=== PATIENT | male | born 1950 | race Caucasian/White ===

== ENCOUNTER 2023-07-08 16:34 | Emergency (ER) | payer OTHER, SELFPAY ==
[2023-07-08 16:37] VITALS: BP 143/79
[2023-07-08 17:09] LABS: % Basophils 0.3 % (0-2); % Eosinophils 6.1 % (0-6); % Immature Granulocytes 0.3 % (0-0.5); % Lymphocytes 29.8 % (20.5-51.1); % Monocytes 8.4 % (1.7-9.3); % Neutrophils 55.1 % (42.2-75.2); Absolute Eosinophils 0.4 10^3/uL (0-0.7); Absolute Lymphocytes 1.9 10^3/uL (1.2-3.4); Absolute Monocytes 0.5 10^3/uL (0.1-0.6); Absolute Neutrophils 3.5 10^3/uL (1.4-6.5); Hematocrit 44.5 % (39.0-52.0); Hemoglobin 15.9 g/dL (13.0-18.0); Mean Corp Hgb Conc. 35.7 g/dL (33.0-37.0); Mean Corpuscular Hgb 31.1 pg (27.0-31.0); Mean Corpuscular Volume 87.1 fL (80.0-94.0); Mean Platelet Volume 10.8 fL (7.4-10.4); Nucleated Red Blood Cells % 0 % (-); Platelet Count 173 10^3/uL (130-400); Red Blood Cell Count 5.11 10^6/uL (4.70-6.10); Red Cell Dist. Width 12.8 % (11.5-14.5); White Blood Cell Count 6.4 10^3/uL (4.8-10.8)
[2023-07-08 17:24] LABS: ALT (SGPT) 32 U/L (0-50); AST (SGOT) 26 U/L (17-59); Albumin 4.7 g/dl (3.5-5.0); Alkaline Phosphatase 87 U/L (38-126); Blood Urea Nitrogen 36 mg/dl (9-20); Calcium 9.9 mg/dl (8.4-10.2); Carbon Dioxide 25 mmol/L (22-30); Chloride 101 mmol/L (98-107); Glucose 223 mg/dl (70-99); Potassium 3.9 mmol/L (3.5-5.1); Sodium 140 mmol/L (135-145); Total Bilirubin 0.8 mg/dl (0.2-1.3); Total Protein 7.6 g/dl (6.3-8.2); eGFR 48.25
--- NOTE | 2023-07-08 20:18 | ED.GENMED ---
History of Present Illness
General
Chief Complaint: Weakness
Source: patient, records, spouse and family
Exam Limitations: none
Time Seen by Provider: 07/08/23 19:59
Nursing documentation reviewed up to this point in time: agreed with except (Patient tells me he feels weak with some chest pressure and shortness of breath with some right-sided headache)
Travel History
Have you had any contact with someone who has COVID-19?: No
Do you have any symptoms of coronavirus? Fever > 100 degrees, chills, cough, shortness of breath, sore throat, loss of taste or smell, muscle aches, or headache?: No
History of Present Illness
History of Present Illness:
73-year male CAD status post stenting, sees Dr. Sue, taking his meds as prescribed, feels fatigued, mildly short of breath with exertion, somewhat reminiscent of his CAD requiring stenting, no leg edema no weight gain, does get some
right-sided headaches, tells me his CPAP has not been working for a few weeks, not getting good night sleep snoring, similar episode about a year ago had some issue with his BiPAP mask which she was able to fix issue with his insurance company not
paying for it, no fevers, no abdominal pain daughter and spouse are at bedside they state his main issue is that he looks weak
Past History
Past History
ED Past Medical History: CAD, HTN, Hypercholesterolemia, NIDDM and Other (Sleep apnea)
ED Past Surgical History: Cardiac (Stents x2)
Social History
Tobacco: Non-smoker
Alcohol: Occasional
Drug: None
Personal:
Living: with family
Employment: Employed
Family History
Family History: Early CAD and CAD
Review of Systems
Review of Systems
All Other Systems: Not applicable
Constitutional: Reports fatigue; Denies fever
Respiratory: Reports trouble breathing; Denies cough
Cardiac: Reports chest pain
ABD/GI: Denies abdominal pain
: Reports no symptoms
Musculoskeletal: Reports no symptoms
Skin: Reports no symptoms
Neurological: Reports headache and weakness
Endocrine: Reports no symptoms
Hematologic/Lymphatic: Reports no symptoms
Psychiatric: Reports no symptoms
Phy Exam
Physical Exam
Physical Exam:
Physical Exam
General: no apparent distress, not acutely ill
Neck: No jaundice, midline trachea, no photophobia
Heart: s1/s2 regular rate and rhythm, no murmur. equal radial pulses.
Lungs: no acute respiratory distress. clear bilaterally
Abdomen: Nontender
Neuro: alert and oriented. no focal neurological deficits
Skin: no rash
Psychiatric: well kept. interactive and cooperative
Extremities: no edema. no calf tenderness.
Scores
Heart Score for Chest Pain Patients
STEMI patient?: No
History: Slightly or Non-Suspicious
ECG: Nonspecific Repolarization
Age: >/= 65 years
Risk Factors: >/= 3 Risk Factors or History of CAD
Troponin: </= Normal Limit
Heart Score for Chest Pain Patients: 5
Heart Score Risk: 20.3% MACE over next 6 weeks
Course
Orders/Labs/Results
Orders:
Orders
07/08/23 16:41
Electrocardiogram (*1) Urgent
Reason for Study: Fatigue / Weakness
CT Head W/o Iv Contrast Urgent
Comment:
Reason For Exam: unsteady on feet for last couple of days
07/08/23 16:42
EKG- Treatment ONCE
07/08/23 17:00
Complete Blood Count/With Diff Urgent
Comprehensive Metabolic Panel Urgent
07/08/23 20:12
CR Chest - 2 Views Urgent
Comment:
Reason For Exam: sob
07/08/23 20:20
NT-proBNP Urgent
Troponin I Urgent
Abnormal Lab Results
07/08/23
17:00
MCH 31.1 H pg
(27.0-31.0)
MPV 10.8 H fL
(7.4-10.4)
Eosinophils % 6.1 H %
(0-6)
BUN 36 H mg/dl
(9-20)
Creatinine 1.5 H mg/dL
(0.7-1.3)
Glucose 223 H mg/dl
(70-99)
07/08/23 17:00
07/08/23 17:00
Vital Signs
Initial and Last Documented VS:
Initial Vital Signs
Temp Pulse Resp BP Pulse Ox
98.0 F 69 16 143/79 98
07/08/23 16:37 07/08/23 16:37 07/08/23 16:37 07/08/23 16:37 07/08/23 16:37
Last Documented Vital Signs
Temp Pulse Resp BP Pulse Ox
98.0 F 71 14 138/82 93
07/08/23 16:37 07/08/23 20:24 07/08/23 20:24 07/08/23 20:24 07/08/23 20:24
MDM/Problems Addressed
Differential Diagnosis Includes:
Deconditioning, tension headache, ACS heart failure electrolyte abnormality noncompliant sleep apnea
Doubt stroke or ANTI[employer]ER infection
MDM/Problems Addressed:
Fatigue shortness of breath headache chest pain
Chronic conditions affecting care: HTN, CAD and Other (Sleep apnea)
Acute Exacerbation and/or Progression of Chronic Illness: DM, HTN, CAD and Other (Sleep apnea)
*Radiology
Radiology exam reviewed: preliminary read by ED provider
*Pulse Oximetry
Patient hypoxic: no
*EKG
Interpreted by ED Provider?: Yes
Interpretation: abnormal
Comparison EKG: no comparison EKG present
Heart Rate: 78
Rate: normal
Rhythm: sinus
Ischemia: non-specific ST changes
*Wire Stripper Interpretation
Rate: normal
Interpretation: normal
Heart Rate: 78
Rhythm: sinus
*Critical Care Note
Total Time (30-74mins, 75-104mins- exclusive of procedures): Not Applicable
Data Reviewed
Review of Other/Old Records Reveals: Labs, Progress Notes and Other (Cath reports)
Source: patient and records
Update Note
Update Note:
Update patient with multiple complaints, unifying diagnosis could be noncompliant with his CPAP, will check troponin proBNP and chest x-ray, do not believe this represents temporal arteritis he has no headache now, no tenderness over the temporal
artery
Chest x-ray proBNP troponin noted
ED Attending Note
-
Portions of this chart may have been created with voice recognition software.� Occasional wrong word or��sound alike� substitutions may have occurred due to the inherent limitations of voice recognition software.
Discharge Plan
Departure
Patient Disposition: Home (Routine Discharge)
Date of Disposition: 07/08/23
Time of Disposition: 21:33
Patient with high blood pressure during this ER visit?: No
Condition: Good
Discharge Problem:
Shortness of breath, Chest pain
Instructions: Generalized Weakness (DC), Chest Pain DCA Follow Up
Prescriptions:
No Action
losartan 50 MG tablet
100 mg PO DAILY
amlodipine 10 MG tablet
10 mg PO DAILY
glimepiride 4 MG tablet
4 mg PO DAILY
aspirin 81 MG tablet,chewable
81 mg PO QPM
icosapent ethyl [Vascepa] 1 capsule
2,000 mg PO BID
nitroglycerin 0.4 MG tablet, sublingual
0.4 mg sublingual [id number] PRN (Reason: chest pain ) Qty: 25 0RF
furosemide 40 MG tablet
40 mg PO DAILY Qty: 30 3RF
carvedilol [Coreg] 25 MG tablet
25 mg PO BID
glimepiride 2 MG tablet
2 mg PO HS
doxazosin 2 MG tablet
2 mg PO HS
atorvastatin 80 MG tablet
80 mg PO DAILY
metformin 500 MG tablet extended release 24hr
500 mg PO BID Qty: 0 0RF
Rx Instructions:
Resume Monday 03/12 am
Referrals:
NONE,* [Active] -
Interventions
Interventions:
ED- Fall Risk Assessment Last Done: 07/08/23 20:22
*ED COVID-19 Vaccine History Last Done: 07/08/23 16:37
ED- Cardiac Assessment Last Done: 07/08/23 20:22
ED- Neurological Assessment Last Done: 07/08/23 20:22
ED- Pulmonary Assessment Last Done: 07/08/23 20:22
[2023-07-08 20:24] VITALS: BP 138/82; BMI 30.7
[2023-07-08 20:54] LABS: NT-proBNP 170 pg/ml; Troponin I 0.016 ng/ml
== END 2023-07-08 21:48 | disposition home or self-care (01) ==
LOC: EMR 16:34
PROVIDERS: Emergency Medicine; EMERGENCY PHYSICIAN Emergency Medicine; FAMILY PHYSICIAN Nurse Practitioner
DX: R06.02 Shortness of breath (principal); R07.89 Other chest pain; E11.9 Type 2 diabetes mellitus without complications; I10 Essential (primary) hypertension; I25.10 Atherosclerotic heart disease of native coronary artery without angina pectoris; G47.30 Sleep apnea, unspecified
CPT/HCPCS: 99285; 70450; 71046; 80053; 83880; 84484; 85025; 93005

== ENCOUNTER → 2024-07-14 10:57 | Outpatient (REF) | payer OTHER, SELFPAY | LOC: HWRCS 10:57 | PROVIDERS: ATTENDING PHYSICIAN Nurse Practitioner | DX: I25.10 Atherosclerotic heart disease of native coronary artery without angina pectoris (principal) | CPT/HCPCS: 93306 ==

== ENCOUNTER → 2024-10-16 08:25 | Outpatient (REF) | payer OTHER, SELFPAY | LOC: RAD 08:25 | PROVIDERS: ATTENDING PHYSICIAN Internal Medicine Cardiovascular Disease | DX: I77.9 Disorder of arteries and arterioles, unspecified (principal) | CPT/HCPCS: 93880 ==

== ENCOUNTER → 2024-10-20 11:44 | Outpatient (REF) | payer OTHER, SELFPAY | LOC: PET 11:44 | PROVIDERS: ATTENDING PHYSICIAN Internal Medicine Cardiovascular Disease | DX: R06.02 Shortness of breath (principal); R42 Dizziness and giddiness; I45.2 Bifascicular block | CPT/HCPCS: 78431; A9555; J2785 ==

== ENCOUNTER → 2025-01-23 09:37 | Outpatient (REF) | payer OTHER, SELFPAY | LOC: PAVMRI 09:37 | PROVIDERS: ATTENDING PHYSICIAN Student in an Organized Health Care Education/Training Program | DX: M54.50 Low back pain, unspecified (principal); M51.26 Other intervertebral disc displacement, lumbar region; M54.16 Radiculopathy, lumbar region | CPT/HCPCS: 72148 ==

== ENCOUNTER → 2025-03-15 14:16 | Outpatient (REF) | payer OTHER, SELFPAY | LOC: HWRAD 14:16 | PROVIDERS: ATTENDING PHYSICIAN Urology | DX: N43.3 Hydrocele, unspecified (principal) | CPT/HCPCS: 76870; 93976 ==

== ENCOUNTER 2025-03-16 06:18 | Day surgery (SDC) | payer OTHER, SELFPAY ==
[2025-03-16 08:08] LABS: Glucose - Point of Care 143 mg/dl (70-99)
== END 2025-03-16 10:02 | disposition home or self-care (01) ==
LOC: GI 06:18
PROVIDERS: ATTENDING PHYSICIAN Internal Medicine Gastroenterology
DX: Z12.11 Encounter for screening for malignant neoplasm of colon (principal); K64.8 Other hemorrhoids; K57.30 Diverticulosis of large intestine without perforation or abscess without bleeding; R12 Heartburn; K44.9 Diaphragmatic hernia without obstruction or gangrene; K31.89 Other diseases of stomach and duodenum; K63.5 Polyp of colon; K63.89 Other specified diseases of intestine; K20.90 Esophagitis, unspecified without bleeding; Z13.810 Encounter for screening for upper gastrointestinal disorder; Z86.0100 Personal history of colon polyps, unspecified
CPT/HCPCS: 45380; 43239; 82962; 88305; 88342